=== PATIENT | female | born 1945 | race Caucasian/White ===

== ENCOUNTER → 2023-04-08 | Day surgery (SDC) | payer MEDICARE, BC ==
[2023-04-08 09:11] LABS: #Eosinphils 0.2 thou/uL (0.0-0.7); #Monocytes 0.6 thou/uL (0.11-0.59); #Neutrophils 4.2 thou/uL (1.40-6.50); %Basophils 0.5 % (0.0-1.0); %Eosinophils 3.4 % (0.0-10.0); %Lymphocytes 18.2 % (21.0-51.0); %Monocytes 10.1 % (0.0-10.0); %Neutrophils 67.6 % (42.0-75.0); Hematocrit 33.2 % (36.0-47.0); Hemoglobin 10.9 g/dL (12.0-16.0); Mean Corpuscular HGB CONC 32.8 g/dL (32.0-36.0); Mean Corpuscular Hemoglobin 35.5 pg (27.0-31.0); Mean Corpuscular Volume 108.1 fl (78.0-98.0); Mean Platelet Volume 10.8 fL (7.4-10.4); Platelet Count 160 10x3/uL (130-400); RBC Distribution Width 14.3 % (11.5-14.5); Red Blood Cell (RBC) Count 3.07 mill/uL (4.20-5.40); White Blood Cell (WBC) Count 6.2 10x3/uL (4.8-10.8)
[2023-04-08 09:25] LABS: Prothrombin Time 23.3 sec (12.0-14.7)
[2023-04-08 09:26] LABS: PTT 46.1 sec (22.9-36.1)
== END ==
LOC: CT 09:17
PROVIDERS: ATTEND Internal Medicine Hematology & Oncology
PROC: 07DR3ZX Extraction of Iliac Bone Marrow, Percutaneous Approach, Diagnostic (ICD-10-PCS; principal; 2023-04-08)
DX: D46.1 Refractory anemia with ring sideroblasts (principal); D75.89 Other specified diseases of blood and blood-forming organs; D64.3 Other sideroblastic anemias; I10 Essential (primary) hypertension; I63.9 Cerebral infarction, unspecified; Z98.49 Cataract extraction status, unspecified eye; Z79.899 Other long term (current) drug therapy
CPT/HCPCS: 20225; 36415; 77002; 85025; 85097; 85610; 85730; 88184; 88185; 88189; 88237; 88264; 88280; 88305; 88311; 88313; 88341; 88342